=== PATIENT | female | born 1970 | race Two or more races ===

== ENCOUNTER 2017-06-12 17:54 | Emergency (ER) | payer MEDICAID ==
[~2017-06-12] VITALS: Ht 152.4 cm; Wt 51.0 kg
[2017-06-12 18:05] VITALS: BP 130/85
== END 2017-06-12 23:15 | disposition left against medical advice (07) ==
LOC: ER 17:54
DX: R51 Headache (principal); M54.2 Cervicalgia
CPT/HCPCS: 99281

== ENCOUNTER 2023-02-28 12:04 | Emergency (ER) | payer MEDICAID ==
[~2023-02-28] VITALS: Ht 152.4 cm; Wt 54.0 kg
[2023-02-28 12:20] VITALS: BP 159/92; RESP 16; TEMP 98.9; O2SAT 100
[2023-02-28 12:27] VITALS: PULSE 63
== END 2023-02-28 19:42 | disposition left against medical advice (07) ==
LOC: ER 12:04
DX: R51.9 Headache, unspecified (principal); Z53.21 Procedure and treatment not carried out due to patient leaving prior to being seen by health care provider
CPT/HCPCS: 99281